=== PATIENT | female | born 1940 | race Caucasian/White ===

== ENCOUNTER 2016-11-23 22:21 | Emergency (ER) | payer OTHER ==
[~2016-11-23 22:21] MED LIST: ACIDOPHILUS PROB1 MG PO; CALC667C6 PO; CHOL100017 PO; CYCL-331 PO; GLUC1TAB26 PO; HYOS0.375 PO; LEVO150T5 PO; MULT-18 PO; OMEG500C3 PO; PSYL1PAC7 PO; SERT25TA4 PO
[2016-11-23 22:30] VITALS: BP 156/88
[2016-11-23] MEDS ORDERED: ACETAMINOPHEN 500 MG TABLET PO ONE (22:45)
[2016-11-23] MEDS ORDERED: CEPH-263 PO (23:06)
--- NOTE | 2016-11-23 23:06 | PHYS DOC ---
Adult General Chief Complaint Chief Complaint: TOE PROBLEM HPI HPI Patient is a 76-year-old female who presents with injury to her left toe about 1 -1/2 hours ago. She caught the toenail on the edge of a bath mat. She has had quite a bit of bleeding. She states it is not very painful. She already had some crutches at home that she used to take some of her weight off the toe. Review of Systems Review of Systems Musculoskeletal: Denies injury elsewhere Current Medications Current Medications Current Medications Medications (Trade) Dose Ordered Sig/Jackie Start Time Stop Time Status Last Admin Dose Admin Acetaminophen (Tylenol) 1,000 mg 1X ONCE 11/23/16 22:45 11/23/16 22:46 DC Allergies Allergies Allergies Coded Allergies Type Severity Reaction Last Updated Verified codeine Allergy Intermediate 12/17/14 Yes Physical Exam Physical Exam Constitutional: Well developed, well nourished, no acute distress, non-toxic appearance. Alert, mentating normally. HENT: Normocephalic, atraumatic, bilateral external ears normal, nose normal. [ ] Eyes: conjunctiva normal, no discharge. [] Neck: Normal range of motion, no stridor. [] Skin: Warm, dry, no erythema, no rash. [] Extremities: Left foot: Left great toe injured, no other injury. Left great toe nail has been flipped out of the matrix. The toenail is still attached to the nailbed. There is no deformity of the toe. Small amount of swelling. Neurologic: Alert and oriented X 3, normal motor function, normal sensory function, no focal deficits noted. [] EKG EKG [] Radiology/Procedures Radiology/Procedures Three-view x-ray of the left great toe read by me. Nondisplaced fracture of the distal phalanx. [] Course & Med Decision Making Course & Med Decision Making Pertinent Labs and Imaging studies reviewed. (See chart for details) The great toenail was caught on a bath mat and flipped up causing the proximal aspect of the toenail to come out of the matrix. However, the toenail is still well attached to the nailbed. I elected to do no further instrumentation and bandaged the still attached toenail in place. The toe was cleaned and dressed by ED nursing staff. Good result. X-ray reveals a nondisplaced fracture so I started her on Keflex. See instructions for plan. [] Dragon Disclaimer Dragon Disclaimer This chart was dictated in whole or in part using Voice Recognition software in a busy, high-work load, and often noisy Emergency Department environment. It may contain unintended and wholly unrecognized errors or omissions. Departure Departure: Impression: Primary Impression: Fracture of distal phalanx of left great toe Additional Impression: Injury of toenail of left foot Disposition: HOME, SELF-CARE Condition: STABLE Referrals: ALKA TAN (PCP) Patient Instructions: Toe Fracture, [id number] Additional Instructions: Try to stay off of your foot as much as possible and keep it elevated to reduce swelling which will also help with the pain for at least 3-5 days. Try to put an ice pack very gently on your toe or rest your toe on the ice pack. Call tomorrow to see if you can get a podiatry appointment for Wednesday or . Leave the bandage on until you're seen by the color making supervisor. If you're not able to be seen by the color making supervisor, leave the bandage on for 2 days and then carefully remove. You may need to soak it off. Rebandage with Vaseline to prevent sticking, and a gauze wrap. Tylenol for pain if needed. Your bone is broken underneath the toenail so I have prescribed an antibiotic. Scripts Cephalexin (KEFLEX) 250 Mg Capsule 1 CAP PO QID for open fracture left toe, #28 CAP Prov: CLAUDIA CONNORS MD 11/23/16 Problem Qualifiers CLAUDIA CONNORS MD Nov 23, 2016 23:06
[2016-11-23] MEDS ORDERED: CEPHALEXIN 250MG 4CAPSULE STARTPACK. PO ONE ×2 (23:15→23:20)
[2016-11-23] MEDS ORDERED: CEPHALEXIN 250 MG CAPSULE PO ONE (23:15)
[2016-11-23] MEDS ORDERED: CEPHALEXIN 250 MG CAPSULE ONE (23:19)
--- NOTE | 2016-11-24 08:11 | RAD ---
INDICATION: rt great toe injury, nail popped out of matrix COMPARISON: None. IMPRESSION: 3 views left 1st toe obtained. 1st distal phalanx fracture is identified.
== END 2016-11-23 23:30 | disposition home or self-care (01) ==
LOC: ER 22:21
DX: S92.425A Nondisplaced fracture of distal phalanx of left great toe, initial encounter for closed fracture (principal); Z88.6 Allergy status to analgesic agent; W23.0XXA Caught, crushed, jammed, or pinched between moving objects, initial encounter; Y93.89 Activity, other specified; Y99.8 Other external cause status; Y92.89 Other specified places as the place of occurrence of the external cause
CPT/HCPCS: 73660; 99284

== ENCOUNTER → 2016-12-25 | Outpatient (CLI) | payer MEDICARE ==
[~2016-12-25] MED LIST changes: +CEPH-263 PO
--- NOTE | 2016-12-25 12:32 | RAD ---
Left foot, 3 views, 12/25/2016: History: Follow-up toe fracture Comparison is made to a study from 11/23/2016. The bony structures are demineralized. The fracture of the great toe is unchanged in position. No significant callus formation is evident. The fracture lines are clearly visible. No new fracture or dislocation is identified. IMPRESSION: Stable nondisplaced fracture of the distal phalanx of the great toe.
== END | disposition home or self-care (01) ==
LOC: DXRADRC 11:05
PROVIDERS: ATTEND Family Medicine
DX: S92.425A Nondisplaced fracture of distal phalanx of left great toe, initial encounter for closed fracture (principal); X58.XXXA Exposure to other specified factors, initial encounter; Y93.89 Activity, other specified; Y92.89 Other specified places as the place of occurrence of the external cause; Y99.8 Other external cause status
CPT/HCPCS: 73630

== ENCOUNTER → 2017-01-08 | Outpatient (CLI) | payer MEDICARE, OTHER ==
--- NOTE | 2017-01-08 15:08 | RAD ---
Three-view left foot radiographs 01/08/2017 Clinical history: Fracture of the left first toe in late November. PA, lateral and oblique digital radiographs of the left foot were obtained. An oblique slightly comminuted fracture of the mid/distal diaphysis of the distal phalanx of the left first toe is again seen. The alignment of the fracture fragments is anatomic and is unchanged. There is evidence of callus formation consistent with interval healing. No new fracture is seen. Impression: Healing fracture of the distal phalanx of the left first toe.
== END | disposition home or self-care (01) ==
LOC: DXRADRC 11:16
PROVIDERS: ATTEND Family Medicine
DX: S92.425D Nondisplaced fracture of distal phalanx of left great toe, subsequent encounter for fracture with routine healing (principal); X58.XXXD Exposure to other specified factors, subsequent encounter
CPT/HCPCS: 73630

== ENCOUNTER → 2017-07-26 | Outpatient (CLI) | payer MEDICARE, OTHER ==
--- NOTE | 2017-07-26 14:57 | RAD ---
Left knee, 2 views, 07/26/2017: History: Knee pain No fracture or dislocation is evident. There is mild degenerative change at the patellofemoral articulation. Chondrocalcinosis is present laterally. No significant joint effusion is seen. IMPRESSION: 1. Mild degenerative change with chondrocalcinosis. 2. No acute bony abnormality is detected.
== END | disposition home or self-care (01) ==
LOC: PMG 12:23
PROVIDERS: ATTEND Family Medicine
DX: M17.12 Unilateral primary osteoarthritis, left knee (principal); M11.262 Other chondrocalcinosis, left knee
CPT/HCPCS: 73560

== ENCOUNTER → 2017-09-02 | Outpatient (CLI) | payer MEDICARE, OTHER ==
--- NOTE | 2017-09-02 12:50 | RAD ---
Left knee, 3 views, 09/02/2017: History: Knee pain AP standing views of both knees as well as lateral and tangential views on the left were obtained as requested. The knee joint spaces are well preserved. There is mild spurring at the left patellofemoral articulation. No fracture or dislocation is evident. There is minimal chondrocalcinosis at the left knee joint laterally. No significant joint effusion is seen. IMPRESSION: 1. No acute bony abnormality is detected. 2. Mild degenerative change and chondrocalcinosis on the left.
== END | disposition home or self-care (01) ==
LOC: DXRAD 10:49
PROVIDERS: ATTEND Orthopaedic Surgery Sports Medicine
DX: M11.262 Other chondrocalcinosis, left knee (principal)
CPT/HCPCS: 73562

== ENCOUNTER → 2018-07-22 | Outpatient (CLI) | payer MEDICARE, OTHER ==
--- NOTE | 2018-07-22 12:45 | RAD ---
DATE: 07/22/2018 EXAM: DIGITAL SCREEN BILAT W/CAD HISTORY: Routine screening COMPARISON: 05/27/2016 This study was interpreted with the benefit of Computerized Aided Detection (CAD). Breast Density: SCATTERED The breast parenchyma shows scattered fibroglandular densities. Breast parenchyma level B. FINDINGS: 2-D and 3-D tomosynthesis imaging was performed in CC and MLO projections. There is a 5 mm smooth nodule in the lateral aspect of the left breast at the 3:00 location as best seen on oblique tomosynthesis image #23 and cc tomosynthesis image #24. It was not visible on the previous study. No other new or enlarging breast densities are seen. Benign type calcifications are evident. No suspicious microcalcifications have developed. IMPRESSION: Small left lateral breast nodule as described above. Sonographic evaluation is suggested. BI-RADS CATEGORY: 0 INCOMPLETE: NEEDS ADDITIONAL IMAGING EVALUATION AND/OR PRIOR MAMMOGRAMS FOR COMPARISON. RECOMMENDED FOLLOW-UP: ADD ADDITIONAL IMAGING PQRS compliance statement: Patient information was entered into a reminder system with a target due date for the next mammogram. Mammography is a sensitive method for finding small breast cancers, but it does not detect them all and is not a substitute for careful clinical examination. A negative mammogram does not negate a clinically suspicious finding and should not result in delay in biopsying a clinically suspicious abnormality. "Our facility is accredited by the [employer] Mammography Program."
== END | disposition home or self-care (01) ==
LOC: MAMMO 10:41
PROVIDERS: ATTEND Family Medicine
DX: Z12.31 Encounter for screening mammogram for malignant neoplasm of breast (principal); N63.23 Unspecified lump in the left breast, lower outer quadrant
CPT/HCPCS: 77067

== ENCOUNTER → 2018-07-22 | Outpatient (CLI) | payer MEDICARE ==
[2018-07-22 11:53] LABS: BASO # 0.1 x10^3/uL (0.0-0.2); BASO % 1 % (0-3); EOS # 0.3 x10^3/uL (0.0-0.7); EOS % 4 % (0-3); HEMATOCRIT 40.1 % (36.0-47.0); HEMOGLOBIN 13.5 g/dL (12.0-15.5); LYMPH # 3.2 x10^3/uL (1.0-4.8); LYMPH % 41 % (24-48); MEAN CORPUSCULAR HEMOGLOBIN 30 pg (25-35); MEAN CORPUSCULAR HGB CONC 34 g/dL (31-37); MEAN CORPUSCULAR VOLUME 88 fL (79-100); MONO # 0.5 x10^3/uL (0.0-1.1); MONO % 6 % (0-9); NEUT # 3.7 x10^3uL (1.8-7.7); NEUT % 47 % (31-73); PLATELET COUNT 348 x10^3/uL (140-400); RED BLOOD COUNT 4.54 x10^6/uL (3.50-5.40); RED CELL DISTRIBUTION WIDTH 13.2 % (11.5-14.5); WHITE BLOOD COUNT 7.7 x10^3/uL (4.0-11.0)
== END | disposition home or self-care (01) ==
LOC: SPEC 11:24
PROVIDERS: ATTEND Family Medicine
DX: M17.12 Unilateral primary osteoarthritis, left knee (principal); Z79.899 Other long term (current) drug therapy
CPT/HCPCS: 36415; 85025

== ENCOUNTER → 2018-07-27 | Outpatient (CLI) | payer MEDICARE ==
--- NOTE | 2018-07-27 14:20 | RAD ---
Indication: Left breast callback Technique: Grayscale and color Doppler ultrasound images of the Limited left breast. Comparison: Mammogram from 07/22/2018. Findings: At 2:00 position approximately 2 cm from the nipple there is a hypoechoic nodule without posterior shadowing or vascularity with well-circumscribed margins measuring 0.4 x 0.3 x 0.2 cm. At 2:00 position approximately 5 cm from the nipple there is an another oval-shaped hypoechoic mass with well-circumscribed margins measuring 0.6 x 0.2 x 0.7 cm which is wider than taller without vascularity. Impression: Couple of hypoechoic nodules in the left breast corresponding to abnormality seen on the mammogram with no apparent worrisome features. BI-RADS 3: Probably benign. Follow-up left breast ultrasound in 6 months recommended.
== END | disposition home or self-care (01) ==
LOC: US 13:02
PROVIDERS: ATTEND Family Medicine
DX: N63.21 Unspecified lump in the left breast, upper outer quadrant (principal)
CPT/HCPCS: 76641

== ENCOUNTER 2018-12-04 13:12 | Emergency (ER) | payer MEDICARE ==
[2018-12-04 13:33] VITALS: BP 140/68
[2018-12-04] MEDS: predniSONE 10 MG TABLET PO ONE (14:30)
[2018-12-04] MEDS ORDERED: PRED-220 PO (14:48)
--- NOTE | 2018-12-04 14:48 | PHYS DOC ---
Past History Past Medical History: No Pertinent History Past Surgical History: No Surgical History Alcohol Use: None Drug Use: None Adult General Chief Complaint Chief Complaint: SKIN RASH/ABSCESS HPI HPI 78 showed female presents with rash. She started noticing a rash on Wednesday that was on her left upper chest, left neck, couple spots on her face, and the right upper chest. It is worse on the left upper chest and neck. It is erythematous, palpable, and intensely pruritic. The patient does admit to pulling some weeds at her house the day or 2 before the rash is showed up. The patient also has a cat, but the cat is an indoor cat most of the time. She doesn't believe she done any poison leyla, but cannot rule out. She denies any other exposures or new products. She denies fever or chills. Review of Systems Review of Systems Constitutional: Denies fever or chills [] Eyes: Denies change in visual acuity, redness, or eye pain [] HENT: Denies nasal congestion or sore throat [] Respiratory: Denies cough or shortness of breath [] Cardiovascular: No additional information not addressed in HPI [] GI: Denies abdominal pain, nausea, vomiting, bloody stools or diarrhea [] : Denies dysuria or hematuria [] Musculoskeletal: Denies back pain or joint pain [] Integument: Rash[] Neurologic: Denies headache, focal weakness or sensory changes [] Endocrine: Denies polyuria or polydipsia [] All other systems were reviewed and found to be within normal limits, except as documented in this note. Current Medications Current Medications Current Medications Medications (Trade) Dose Ordered Sig/[facility] Start Time Stop Time Status Last Admin Dose Admin Prednisone (Prednisone) 50 mg 1X ONCE 12/04/18 14:30 12/04/18 14:31 UNV Allergies Allergies Allergies Coded Allergies Type Severity Reaction Last Updated Verified codeine Allergy Intermediate 12/17/14 Yes Physical Exam Physical Exam Constitutional: Well developed, well nourished, no acute distress, non-toxic appearance. [] HENT: Normocephalic, atraumatic, bilateral external ears normal, oropharynx moist, no oral exudates, nose normal. [] Eyes: PERRLA, EOMI, conjunctiva normal, no discharge. [] Neck: Normal range of motion, no tenderness, supple, no stridor. [] Cardiovascular:Heart rate regular rhythm, no murmur [] Lungs & Thorax: Bilateral breath sounds clear to auscultation [] Abdomen: Bowel sounds normal, soft, no tenderness, no masses, no pulsatile masses. [] Skin: Erythematous, vesicular rash on the patient's left chest, right chest, left neck, left supraorbital and infraorbital face. Consistent with rhus dermatitis[] Back: No tenderness, no CVA tenderness. [] Extremities: No tenderness, no cyanosis, no clubbing, ROM intact, no edema. [] Neurologic: Alert and oriented X 3, normal motor function, normal sensory function, no focal deficits noted. [] Psychologic: Affect normal, judgement normal, mood normal. [] Current Patient Data Vital Signs Vital Signs Date Time Temp Pulse Resp B/P (MAP) Pulse Ox O2 Delivery O2 Flow Rate FiO2 12/04/18 13:33 98.3 104 16 94 Room Air EKG EKG [] Radiology/Procedures Radiology/Procedures [] Course & Med Decision Making Course & Med Decision Making Pertinent Labs and Imaging studies reviewed. (See chart for details) The patient appears exposed to poison leyla or a similar plant. This is not consistent with shingles. I will treat her with prednisone taper for 2 weeks. She preferred to have oral tablets and not start with a shot. She is stable for discharge at this time. [] Dragon Disclaimer Dragon Disclaimer This electronic medical record was generated, in whole or in part, using a voice recognition dictation system. Departure Departure: Impression: Primary Impression: Poison leyla dermatitis Disposition: 01 HOME, SELF-CARE Condition: STABLE Referrals: ROOSEVELT MCCULLOUGH MD (PCP) Patient Instructions: Poison Leyla, [id number] Scripts Prednisone (PREDNISONE) 10 Mg Tablet 10 MG PO UD for PREDNISONE TAPER, #37 TAB 0 Refills Take 5 tablets by mouth daily for 2 days, then take 4 tablets by mouth daily for 3 days, then take 3 tablets by mouth daily for 3 days, then take 2 tablets by mouth daily for 2 days, then take 1 tablet by mouth daily for 2 days, then stop. Prov: TAMANNA VASQUEZ DO 12/04/18 TAMANNA VASQUEZ DO Dec 04, 2018 14:48
[2018-12-04] MEDS ORDERED: TRIA15CR2 TP (14:55)
== END 2018-12-04 15:00 | disposition home or self-care (01) ==
LOC: ER 13:12
DX: L23.7 Allergic contact dermatitis due to plants, except food (principal); Z88.5 Allergy status to narcotic agent
CPT/HCPCS: 99283; J7512

== ENCOUNTER → 2019-01-23 | Outpatient (CLI) | payer MEDICARE ==
[~2019-01-23] MED LIST changes: +PRED-220 PO; +TRIA15CR2 TP
--- NOTE | 2019-01-26 11:36 | RAD ---
INDICATION: 78 years year-old female presents for further evaluation of an abnormality seen on prior ultrasound TECHNIQUE: Targeted high resolution sonography of the region of clinical concern was performed. COMPARISON: None FINDINGS: At the 2:00 position, 5 cm from the nipple, there is an irregular, mixed solid and cystic lesion measuring 6 x 5 x 2 mm, previously measuring 7 x 2 x 6 mm. At the 2:00 position, 2 cm from the nipple, a 3 x 2 x 2 mm heterogeneously hypoechoic nodular density is seen, previously was cystic. IMPRESSION: Suspicious finding at the 2:00 position, 5 cm from the nipple given interval solid appearance. RECOMMENDATION: Recommend biopsy of the 2:00 position, 5 cm from the nipple hypoechoic lesion. 6 month follow-up of the 2:00 lesion, 2 cm from the nipple is recommended with ultrasound BI-RADS 4: Suspicious
== END | disposition home or self-care (01) ==
LOC: US 12:42
PROVIDERS: ATTEND Family Medicine
DX: N64.89 Other specified disorders of breast (principal)
CPT/HCPCS: 76641

== ENCOUNTER → 2020-01-08 | Outpatient (CLI) | payer MEDICARE ==
--- NOTE | 2020-01-08 15:50 | RAD ---
Chest, PA and Lateral: Technique: PA and lateral views of the chest were obtained. History: Wheezing. Comparison: None. Findings: The heart and pulmonary vasculature appear within normal limits. The lungs are clear. The pleural margins are clear. Impression: No acute chest process is seen. Electronically signed by: Garret Reyna MD (01/08/2020 3:47 PM) [id number]
== END | disposition home or self-care (01) ==
LOC: PMG 10:55
PROVIDERS: ATTEND Family Medicine
DX: R06.2 Wheezing (principal)
CPT/HCPCS: 71046

== ENCOUNTER → 2021-09-23 | Outpatient (CLI) | payer MEDICARE, OTHER ==
[~2021-09-23] MED LIST changes: -CYCL-331 PO; +CYCL10TA19 PO; +SERT-267 PO; -SERT25TA4 PO
--- NOTE | 2021-09-23 14:45 | RAD ---
XR CHEST 2V History: Cough for one week Comparison: 01/08/2020 Technique: PA and lateral chest radiographs. Findings: The lungs are adequately inflated with mild elevation of the left diaphragm. Hazy opacification of th e left upper lobe and lingula. No pleural effusion or pneumothorax. Calcified subcarinal and hilar ly mph nodes. Normal cardiac size and pulmonary vasculature. Osseous structures are unremarkable. Impression: 1. Hazy left upper lobe and lingular opacity concerning for pneumonia in the appropriate clinical se tting. Recommend follow-up chest radiographs in 6-8 weeks to ensure resolution. Electronically signed by: Tomasz Gonzalez MD (09/23/2021 2:43 PM) [id number]
--- NOTE | 2021-09-23 15:10 | RAD ---
XR LUMBAR SPINE 2-3V History: Back pain Comparison: None. Technique: 3 views of the lumbar spine. Findings: There are 5 non-rib bearing lumbar vertebral segments. There is no evidence of fracture. No destructive osseous lesions. Mild anterolisthesis of L4 on L5 Facet hypertrophy greatest at L4-S1. Moderate disc space narrowing L4-L5 and severe narrowing L5-S1. Sacroiliac joints are unremarkable. Soft tissues are unremarkable. IMPRESSION: 1. 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 Electronically signed by: Tomasz Gonzalez MD (09/23/2021 3:07 PM) [id number]
== END ==
LOC: RAD 14:20
PROVIDERS: ATTEND Nurse Practitioner Family
DX: M51.36 Other intervertebral disc degeneration, lumbar region (principal); M43.16 Spondylolisthesis, lumbar region; M48.07 Spinal stenosis, lumbosacral region; M47.897 Other spondylosis, lumbosacral region; J98.4 Other disorders of lung; R05.9 Cough, unspecified
CPT/HCPCS: 71046; 72100